=== PATIENT | male | born 1985 | race Caucasian/White ===

== ENCOUNTER 2020-11-17 20:34 | Emergency (ER) | payer OTHER, SELFPAY ==
[2020-11-17 20:40] VITALS: BP 135/84; PULSE 73; RESP 16; TEMP 36.9; O2SAT 99
[2020-11-17] MEDS: Cephalexin 500 MG CAP PO (22:21)
--- NOTE | 2020-11-17 22:28 | W.ED.GENAD ---
Discharge Plan Disposition Patient Disposition: HOME Condition: Good Discharge Details Clinical Impression: Cellulitis Primary Care Provider: Ren Smith ED Provider: Margarette Stewart Home Meds and New Rx's Prescriptions: New cephalexin 500 mg capsule 500 mg PO Q6H 10 Days Qty: 40 RF: 0 Discharge Instructions Additional Instructions: Take antibiotics as prescribed Soak your finger in warm water Decreasing use of this finger or will not improve Return with spreading redness, fever, worsening pain Ibuprofen and Tylenol as needed for discomfort Recheck in 48 hours Return earlier should you have spreading redness, fever, worsening pain I have listed orthopedics for follow-up Referrals: Honorio Mello MD [ [facility] STAFF PHYSICIAN] - Discharge Data Discharge Date/Time-TO BE ENTERED AT DEPARTURE: 11/17/20 22:31 Medical Decision Making Patient with evidence of right puncture wound Ultrasound to examine for foreign body only I did not order x-ray as this is a piece of wood and unlikely to display on x-ray Ultrasound does not show evidence of obvious foreign body I do not see abscess formation Patient be placed on Keflex and will soak hand He is instructed to decrease the use of the affected extremity and return earlier should he have new or worsening complaints His tetanus was date HPI General Mode of arrival: ambulatory. Date/Time Provider Initiated Documentation: 11/17/20 21:57. Limitations to Documentation: no limitations. Information obtained by: patient. HPI Narrative: This 35-year-old gentleman presents with a right thumb pain and swelling status post puncture from a piece of wood. Denies any additional injuries. Denies high impact injury. States event occurred acute. Thinks he pulled the piece of wood out completely. States tetanus up-to-date. Denies any strength or sensation change. Denies any fever. Related Data Home Medications Medication Instructions Recorded Confirmed cephalexin 500 mg PO Q6H 10 Days #40 cap 11/17/20 Previous Rx's Medication Instructions Recorded cephalexin 500 mg PO Q6H 10 Days #40 cap 11/17/20 Allergies Allergy/AdvReac Type Severity Reaction Status Date / Time No Known Allergies Allergy Unverified 11/17/20 20:43 General Stated Complaint: RashLesion TAVO: 4 Review of Systems Narrative: Review of systems obtained x3 and negative aside from indication in HPI PFSH Social History Smoking/Tobacco Use Status: Never Smoking risk assessment performed?: Yes Alcohol Intake: never Drug use: Never Substance use type: does not use Do you feel safe at home: Yes Do you feel safe in your relationship?: Yes Exam Extrem Other: Right thumb with puncture to radial aspect of thumb Neurovascularly intact, no evidence of compartment syndrome, mild pink discoloration without erythema, no crepitus Course Vital Signs Vital signs: Vital Signs Temperature 36.9 C 11/17/20 20:40 Pulse 73 11/17/20 20:40 Respiratory Rate 16 11/17/20 20:40 Blood Pressure 135/84 11/17/20 20:40 Pulse Oximetry 99 11/17/20 20:40 Temperature 36.9 C 11/17/20 20:40 Temperature Source Temporal Artery Scan 11/17/20 20:40 Pulse 73 11/17/20 20:40 Respiratory Rate 16 11/17/20 20:40 Respiratory Effort Non-Labored 11/17/20 20:45 Blood Pressure 135/84 11/17/20 20:40 Blood Pressure Position Sitting 11/17/20 20:40 Pulse Oximetry 99 11/17/20 20:40 Oxygen Delivery Method Room Air 11/17/20 20:40 Oxygen Flow Rate 0 11/17/20 20:40 Pain Level 4 11/17/20 20:40
== END 2020-11-17 22:31 | disposition home or self-care (01) ==
PROVIDERS: Emergency Provider Physician Assistant; PCP Family Medicine
DX: S60.351A Superficial foreign body of right thumb, initial encounter (principal); L03.818 Cellulitis of other sites; W45.8XXA Other foreign body or object entering through skin, initial encounter
CPT/HCPCS: 99284; 99283

== ENCOUNTER 2022-12-08 18:47 | Outpatient (REF) | payer OTHER, SELFPAY ==
[2022-12-08 20:03] LABS: Calculated LDL 77 mg/dL (<100); Cholesterol 145 mg/dL (<200); HDL Cholesterol 44 mg/dL (40-60); Triglyceride 120 mg/dL (<150)
== END 2022-12-08 18:48 | disposition home or self-care (01) ==
LOC: NCHCN 18:47
PROVIDERS: PCP Family Medicine; Visit Provider Nurse Practitioner Family
DX: Z13.1 Encounter for screening for diabetes mellitus (principal); Z13.220 Encounter for screening for lipoid disorders; Z00.00 Encounter for general adult medical examination without abnormal findings
CPT/HCPCS: 80061